=== PATIENT | female | born 1965 | race Caucasian/White ===

== ENCOUNTER 2019-10-06 06:33 | Outpatient (CLI) | payer MEDICAID, SELFPAY ==
--- NOTE | 2019-10-06 07:56 | ECG_ITS ---
NAME OF STUDY: LEXISCAN SESTAMIBI STRESS TEST INDICATION: Chest Pain PROCEDURE: At the baseline, the blood pressure was 134/67 mmHg, oxygen saturation 99% with a heart rate of 44 bpm. The electrocardiogram showed sinus bradycardia, normal axis. Poor anterior R wave progression. The Lexiscan was infused over a period of 20 seconds. A total of 0.4 milligrams of Lexiscan was infused. The stress phase was continued for a total of 5 minutes. Heart rate at the end of the stress phase was 80 bpm, oxygen saturation 98% with a blood pressure 126/75 mmHg. The EKG at the peak infusion revealed sinus rhythm with no significant ST-T wave changes. Sestamibi was injected 20 seconds after the Lexiscan infusion. Blood pressure at the end of the recovery phase was 125/80 mmHg, oxygen saturation 98% with a heart rate of 84 beats per minute. CONCLUSION: 1. No significant EKG changes with the LexiScan infusion. 2. No LexiScan induced chest pain or cardiac arrhythmia. 3. Normal blood pressure and heart rate response. 4. Sestamibi/sestamibi perfusion scan pending; see separate report. Electronically Signed On 10-06-2019 14:53:48 HEAD AND NECK SURGEON by Kayla Cortez M.D. [id number]
--- NOTE | 2019-10-06 07:57 | NMCV_ITS ---
NM MIBI/MIBI Stress/Rest [id number] Shira Becerril Age: 53 Gender: F : 1965 Exam Date: 10/06/2019 08:18 Ordering Phys: Jasmine Valverde MD Technologist: SSI Harmon Exam Location: [facility] Indications: Chest Pain STRESS TEST Please [facility] for [facility] IMAGE PROTOCOL Rest/Stress 1 Lexiscan Day Radiopharmaceutical Dose (mCi) Administration Site Administered by Rest: Tc-99m 10.3 IV SIS Harmon Stress:Tc-99m 32.7 IV SIS Morrell Rest: 10/06/2019 60 Discovery 630 Stress: 10/06/2019 60 Discovery 630 0.4mg Lexiscan. Images obtained in supine and prone position. 46DD chest wall SPECT RESULTS Technical Quality: Good Raw Data Analysis: Normal, Breast attenuation, Soft tissue attenuation Image Corrections: No attenuation or motion correction applied Summed Stress Score: 7 Summed Rest Score: 3 Summed Difference Score: 4 PERFUSION FINDINGS Small size perfusion abnormality of mild severity of anterior wall on rest images with improved tracer uptake on stress images. Small sized perfusion abnormality of mid to apical lateral wall on the rest images with subtle reversibility in mid inferior wall on supine stress images with improved tracer uptake on prone stress images. This is suggestive of attenuation artifact. FUNCTIONAL RESULTS (calculated via Gated SPECT) Stress Image LV EF (%): 66 Stress EDV (mL):96 TID: 0.97 Stress ESV (mL):33 Rest Image LV EF (%): 66 FUNCTIONAL FINDINGS: The left ventricle is normal in size. Transient Ischemia Dilatation of 0.97. There is normal left ventricular systolic function. The left ventricular ejection fraction is normal with a value of 66%. There is normal left ventricular wall thickening. IMPRESSIONS 1. Myocardial perfusion imaging is normal. Attenuation artifact noted on anterior and mid to apical lateral wilson. 2. Overall left ventricular systolic function is normal without regional wall motion abnormalities. 3. The left ventricular ejection fraction is normal with a value of 66%. 4. No coronary ischemia based on the study. Kayla Cortez MD (Electronically Signed) Final Date: 06 October 2019 13:41 S
[2019-10-06 08:00] VITALS: BP 128/75; PULSE 93; BMI 36.2
[2019-10-06] MEDS: regadenoson 0.4 Mg/5 ml Syringe IVP (09:19)
== END 2019-10-06 06:34 | disposition home or self-care (01) ==
LOC: RAD 06:37
PROVIDERS: PCP Nurse Practitioner Family; Visit Provider Specialist
DX: R07.89 Other chest pain (principal)
CPT/HCPCS: 78452; 93017; A9500; J2785

== ENCOUNTER 2020-01-31 09:02 | Outpatient (CLI) | payer MEDICAID, SELFPAY ==
[2020-01-31] MEDS: iohexol 300 mg/mL 50 mL Btl PO (09:25)
--- NOTE | 2020-01-31 11:00 | CT_ITS ---
WS: [id number] CT ABDOMEN PELVIS TECHNIQUE: Contrast-enhanced CT of the abdomen and pelvis with coronal and sagittal reformatted image s. CLINICAL INFORMATION: Abdominal Pain COMPARISON: None. DLP: 1098.[address] scans at [facility] use at least one of these dose optimization techniques: automat ed exposure control; mA and/or kV adjustment per patient size (includes targeted exams where dose is matched to clinical indication); or iterative reconstruction. FINDINGS: Prior postoperative changes hysterectomy. Prior postoperative cholecystectomy and gastric bypass. Pos toperative changes at the GE junction. No evidence of small or large bowel obstruction. No evidence o f gastric outlet obstruction. Normal proximal duodenum. Liver is normal in appearance. Normal portal vein and splenic vein. Normal spleen. Mild fatty atrophy of the pancreas. Mild physiologic common bile duct prominence normal postcholecystectomy. Adrenal gl ands are normal. Bilateral renal cortical atrophy. Normal renal parenchymal enhancement. Small bilate ral renal cysts. Normal caliber abdominal aorta. Lung bases are well aerated. Mild lumbar curve conve x left. Mild sigmoid constipation. CT/CT abdomen pelvis w con* [id number] IMPRESSION: 1. Prior postoperative changes at the GE junction and gastric bypass. No evide nce of gastric outlet obstruction. Proximal duodenum appears normal. 2. Prior cholecystectomy and hysterectomy. 3. Normal-appearing small and large bowel. 4. No evidence of epigastric or ventral abdominal wall hernia. 5. No abdominal or pelvic lymphadenopathy. 6. Small bilateral renal cysts.
[2020-01-31] MEDS: iohexol 300 mg/mL 100 mL Btl IV (11:20)
== END 2020-01-31 09:03 | disposition home or self-care (01) ==
LOC: RADWPI 09:15
PROVIDERS: PCP Nurse Practitioner Family; Visit Provider Surgery
DX: R10.9 Unspecified abdominal pain (principal); Z98.84 Bariatric surgery status; N28.1 Cyst of kidney, acquired; Z90.49 Acquired absence of other specified parts of digestive tract
CPT/HCPCS: 74177; Q9967

== ENCOUNTER → 2020-02-05 09:45 | Outpatient (BNVA) | payer MEDICAID, SELFPAY | PROVIDERS: PCP Nurse Practitioner Family; Visit Provider Specialist | DX: G40.909 Epilepsy, unspecified, not intractable, without status epilepticus (principal) | CPT/HCPCS: 99213 ==

== ENCOUNTER 2021-03-11 14:54 | Outpatient (CLI) | payer MEDICAID, SELFPAY ==
--- NOTE | 2021-03-11 14:59 | MM_ITS ---
WS: [id number] BILATERAL SCREENING DIGITAL MAMMOGRAM WITH CAD HISTORY: SCREENING COMPARISON: 09/20/2019 and 07/26/2018 Bilateral CC and MLO views submitted. Computer aided detection analyzed. Breast composition: There are scattered areas of fibroglandular density. No suspicious masses, microc alcifications or architectural distortion. MM/[place] [id number] IMPRESSION: BI-RADS: 1-Negative FOLLOW UP: 1 Year Follow-up
== END 2021-03-11 14:55 | disposition home or self-care (01) ==
LOC: RADSHAW 14:57
PROVIDERS: PCP Nurse Practitioner Family; Visit Provider Nurse Practitioner Family
DX: Z12.31 Encounter for screening mammogram for malignant neoplasm of breast (principal)
CPT/HCPCS: 77067

== ENCOUNTER → 2021-05-14 09:32 | Outpatient (BNVA) | payer MEDICAID, SELFPAY | PROVIDERS: PCP Nurse Practitioner Family; Visit Provider Specialist | DX: G40.309 Generalized idiopathic epilepsy and epileptic syndromes, not intractable, without status epilepticus (principal); G40.909 Epilepsy, unspecified, not intractable, without status epilepticus; J44.9 Chronic obstructive pulmonary disease, unspecified | CPT/HCPCS: 99213; 99214 ==

== ENCOUNTER 2021-07-12 12:28 | Emergency (ER) | payer MEDICAID, SELFPAY ==
[2021-07-12 12:36] VITALS: BP 148/86; PULSE 77; RESP 20; TEMP 36.7; O2SAT 98
--- NOTE | 2021-07-12 13:33 | ED_ITS ---
HPI - Allergic Reaction General: Chief complaint: Allergic Reaction Stated complaint: UNRESPONSIVE Time Seen by Provider: 07/12/21 12:48 History of Present Illness: HPI narrative: Patient is a 55-year-old female who presents today after taking Xolair around 11 AM. Shortly after taking Xolair the patient used an EpiPen when they became short of breath, hoarse, and nauseous with a headache. The patient exhibits pursed lip breathing and at times struggles to speak. The patient reports being a non-smoker with a history of severe asthma and COPD. The patient reports this is the second time she has ever taken Xolair. complaint: allergic reaction Onset (ago): hour(s) Exposure: medication Associated symptoms: Reports difficulty breathing, dizziness, hoarseness, itching and tongue swelling (Sensation of tongue swelling without physical tongue swelling) Severity: moderate Treatment prior to arrival: epinephrine Review of Systems ENMT: Reports: hoarseness, dry mouth and other (Sensation of swollen tongue) Card: Reports: lightheadedness Resp: Reports: dyspnea, non-productive cough and wheezing Neuro: Reports: dizziness All/Imm: Reports: tongue swelling (Sensation of tongue swelling without physical tongue swelling) PFS ED PFSH: Medical History (Updated 07/12/21 @ 15:17 by Monster Roberts DO) Asthma Carotid artery stenosis Diabetes Family history of heart disease Migraine Morbid obesity ANN-MARIE (obstructive sleep apnea) Seizure Surgical History History of arthroplasty of right ankle History of hysterectomy History of laparoscopic cholecystectomy History of Mitzy-en-Y gastric bypass (~2018) Family History Other Heart disease Denies family history of Anesthesia complication Bleeding disorder Social History Second hand smoke exposure: No Alcohol intake: never Adopted: No Caregiver/support person: Yes Lives independently: Yes Household members: spouse Housing: House Marital status: service: No Current occupational exposures/hazards: No Pets and animals: No History of recent travel: No Sexually active: No Current gender identity: Male and Female Shanell/Mosque: Zoroastrian Special shanell needs: No Agree to transfusion: No Financial difficulty paying for basics: Decline to Answer Physical Exam Const: COMMON NORMALS: no acute distress GENERAL APPEARANCE: cooperative and comfortable ORIENTATION/CONSCIOUSNESS: Yes awake, Yes oriented to person, Yes oriented to place and Yes oriented to time HENMT: COMMON NORMALS: normocephalic, atraumatic, moist oral mucous membranes and oropharynx normal HEAD & SCALP: normocephalic and atraumatic Neck/C-Spine: COMMON NORMALS: no JVD Resp: EFFORT & INSPECTION: Yes pursed lip breathing and Yes Actively coughing AUSCULTATION: wheezes Cardio: COMMON NORMALS: no JVD, regular rate, regular rhythm and No murmurs present (Cardio) RATE: regular rate RHYTHM: regular rhythm Neuro: SENSORIUM/ORIENTATION: Yes oriented to person, Yes oriented to place and Yes oriented to time Course Vital Signs: Vital signs: Vital Signs Temperature 98.1 F 07/12/21 12:36 Pulse Rate 82 07/12/21 15:53 Respiratory Rate 20 H 07/12/21 13:57 Blood Pressure 120/70 07/12/21 15:53 Pulse Oximetry 98 07/12/21 15:53 MDM - Allergic Reaction MDM Narrative: Medical decision making narrative: Doing well at this time breathing is good no stridor no wheezes Goeden discharge home on Medrol Dosepak advised that she stop the Xolair and follow-up with pulmonology Discharge Plan Discharge Patient Disposition: Home Clinical Impression: Severe persistent asthma, Medication adverse effect Condition: Stable Prescriptions: New Medrol (Boubacar) 4 mg tablets,dose pack See Rx Instructions .ROUTE .COMPLEX Qty: 21 RF: 0 Held Xolair 150 mg/mL syringe 300 mg SUBCUT .Monthly RF: 0 Hold Instructions: Resume on 07/25/21. No Action fluticasone propionate 50 mcg/actuation spray,suspension 1 spray INTRANASAL DAILY RF: 0 lisinopril 30 mg tablet 30 mg PO DAILY RF: 0 fluticasone propion-salmeterol [Wixela Inhub] 250-50 mcg/dose blister with device 1 inh INHALATION BID RF: 0 albuterol sulfate [ProAir HFA] 90 mcg/actuation HFA aerosol inhaler 1 inh INHALATION QID RF: 0 montelukast 10 mg tablet 10 mg PO DAILY RF: 0 zonisamide 100 mg capsule See Rx Instructions .ROUTE .COMPLEX Qty: 120 RF: 5 Discharge Orders: Discharge ED (Routine); Ordered 07/12/21 Ordered By: Monster Roberts Referrals: Yaritza Lauren, LATOYA [Primary Care Provider] - Discharge Diet: Usual diet Discharge Activity: Limit activity as instructed Patient Instructions: Opioid Safety Activity Restrictions/Additional Instructions: Follow-up with Dr. Yeung this coming week. Coding Level of Care Code ED Orthophoto Tech/Draftsman for Natali Fwd Exam Detailed
[2021-07-12] MEDS: ipratropium-albuterol 3 mL Neb INHALATION (13:55)
[2021-07-12 13:57] VITALS: PULSE 62; RESP 20; O2SAT 99
[2021-07-12 14:02] VITALS: PULSE 60
[2021-07-12 15:53] VITALS: BP 120/70; PULSE 82; O2SAT 98
== END 2021-07-12 15:55 | disposition home or self-care (01) ==
PROVIDERS: Emergency Provider Family Medicine; PCP Nurse Practitioner Family
DX: J45.50 Severe persistent asthma, uncomplicated (principal); T50.905A Adverse effect of unspecified drugs, medicaments and biological substances, initial encounter; E11.9 Type 2 diabetes mellitus without complications
CPT/HCPCS: 94640; 96374; 99283; J2930

== ENCOUNTER 2021-08-01 09:49 | Outpatient (CLI) | payer MEDICAID, SELFPAY ==
[2021-08-01 10:19] LABS: Basophils % 0.9 %; Eosinophils # 0.1 10^3/uL (0.0-0.8); Eosinophils % 1.1 %; Hematocrit 41.4 % (37.0-47.0); Lymphocytes # 1.5 10^3/uL (0.8-4.8); Lymphocytes % 33.8 %; Mean Corpuscular HGB Conc 31.4 g/dL (30.0-36.0); Mean Corpuscular Hemoglobin 30.9 pg (28.0-34.0); Mean Corpuscular Volume 98.3 fl (81-99); Mean Platelet Volume 10.3 fL (7.4-10.4); Monocytes # 0.4 10^3/uL (0.2-0.9); Monocytes % 7.7 %; Neutrophils # 2.58 10^3/uL (1.8-7.7); Neutrophils % 56.5 %; Nucleated Red Blood Cells % 0 %; Platelet Count 237 10^3/cmm (130-400); Red Blood Count 4.21 10^6/uL (4.1-5.3); Red Cell Distribution Width 13.2 % (12.1-15.1); White Blood Count 4.6 10^3/uL (4.0-10.0)
[2021-08-04 16:02] LABS: Alternaria Alternata (M6) Ige <0.10 kU/L; Alternaria Class 0; Bermuda Class 0; Bermuda Grass (G2) Ige <0.10 kU/L; Cat Dander (E1) Ige <0.10 kU/L; Cat Dander Class 0; Common Ragweed (Short) (W1) Ig <0.10 kU/L; D. Farinae Class 2; Dermatophagoides Class 3; Dermatophagoides Farinae (D2) 0.99 kU/L; Dog Dander (E5) Ige <0.10 kU/L; Dog Dander Class 0; Elm (T8) Ige <0.10 kU/L; Elm Class 0; English Plantain (W9) Ige <0.10 kU/L; English Plantain Class 0; House Dust (Greer) (H1) Ige 0.12 kU/L; House Dust (Hollister- Stier) <0.10 kU/L; House Dust Class 0; House Dust Class 0/1; Immunoglobulin E 248 kU/L (<OR=114); Johnson Grass (G10) Ige <0.10 kU/L; Johnson Grass Cl 0; June Grass Class 0; June Grass(Kentucky Blue) (G8) <0.10 kU/L; Lamb'S Quarters (Goose Foot) <0.10 kU/L; Lamb'S Quarters Class 0; Maple (Box Elder) (T1) Ige <0.10 kU/L; Maple Class 0; Meadow Fescue (G4) Ige <0.10 kU/L; Meadow Fescue Class 0; Mucor Racemosus Class 0; Oak (T7) Ige <0.10 kU/L; Oak Class 0; Orchard Grass (Cocksfoot) (G3) <0.10 kU/L; Penicillium Class 0; Penicillium Notatum (M1) Ige <0.10 kU/L; Perennial Rye Grass (G5) Ige <0.10 kU/L; Perennial Rye Grass Class 0; Ragweeed Class 0; Rough Marsh Elder (W16) Ige <0.10 kU/L; Rough Marsh Elder Class 0; Sweet Vernal Class 0; Sweet Vernal Grass (G1) Ige <0.10 kU/L; Timothy Grass (G6) Ige <0.10 kU/L; Timothy Grass Class 0
[2021-08-05 16:43] LABS: Aspergillus Fumigatus, Igg Ab, 25.4 mg/L (<=102)
== END 2021-08-01 09:50 | disposition home or self-care (01) ==
LOC: LAB 09:53
PROVIDERS: PCP Nurse Practitioner Family; Visit Provider Internal Medicine Critical Care Medicine
DX: J45.50 Severe persistent asthma, uncomplicated (principal); R06.02 Shortness of breath
CPT/HCPCS: 36415; 82785; 85025; 86003

== ENCOUNTER 2021-09-30 10:49 | Outpatient (CLI) | payer MEDICAID, SELFPAY ==
[2021-09-30 11:26] LABS: Basophils % 0.8 %; Eosinophils # 0.1 10^3/uL (0.0-0.8); Eosinophils % 1.9 %; Hematocrit 40.3 % (37.0-47.0); Hemoglobin 12.8 g/dL (11.5-15.3); Lymphocytes # 1.6 10^3/uL (0.8-4.8); Lymphocytes % 30.3 %; Mean Corpuscular HGB Conc 31.8 g/dL (30.0-36.0); Mean Corpuscular Volume 94.4 fl (81-99); Mean Platelet Volume 10.3 fL (7.4-10.4); Monocytes # 0.3 10^3/uL (0.2-0.9); Monocytes % 5.5 %; Neutrophils # 3.21 10^3/uL (1.8-7.7); Neutrophils % 61.3 %; Nucleated Red Blood Cells % 0 %; Platelet Count 250 10^3/cmm (130-400); Red Blood Count 4.27 10^6/uL (4.1-5.3); Red Cell Distribution Width 13.2 % (12.1-15.1); White Blood Count 5.2 10^3/uL (4.0-10.0)
[2021-09-30 11:46] LABS: Calcium 8.4 mg/dL (8.5-10.5)
[2021-09-30 11:57] LABS: Alanine Aminotransferase 13 U/L (0-33); Albumin Level 3.8 g/dL (3.5-5.2); Alkaline Phosphatase 111 IU/L (35-105); Anion Gap 13.6 (5-19); Aspartate Amino Transferase 16 U/L (0-32); Blood Urea Nitrogen 15 mg/dL (6-20); Calcium 8.5 mg/dL (8.5-10.5); Carbon Dioxide 22 mmol/L (22-29); Chloride 108 mmol/L (98-107); Chol HDL Ratio 3.64 mg/dL (0.0-4.40); Cholesterol 193 mg/dL (0-200); Ferritin 82 ng/mL (15-150); Globulin 2.7 g/dL (1.3-4.6); Glomerular Filtration Rate 57.4 mL/min (90-130); Glucose 87 mg/dL (65-115); HDL Cholesterol 53 mg/dL (60-100); Iron 80 ug/dL (37-145); LDL Cholesterol Calculated 108 mg/dL (50-129); LDL HDL Ratio 2.04 RATIO (0.00-3.22); Magnesium 1.9 mg/dL (1.7-2.3); Osmolality Calculated 288 mOsm/kg (285-295); Percent Saturation 29.3 % (20-50); Potassium 4.6 mmol/L (3.5-5.1); Sodium 139 mmol/L (136-145); Thyroid Stimulating Hormone 3.85 uIU/mL (0.27-4.20); Total Bilirubin 0.3 mg/dL (0.15-1.2); Total Iron Binding Capacity 273 mcg/dl; Total Protein 6.5 g/dL (6.6-8.7); Triglycerides 158 mg/dL (0-150); Unsaturated Iron Binding 193 ug/dL (112-347); Vitamin B12 792 pg/mL (232-1245)
[2021-09-30 12:21] LABS: Folate Level > 20.0 ng/mL (4.8-37.3)
[2021-10-03 09:18] LABS: Zinc Level, Serum or Plasma 74 mcg/dL (60-130)
[2021-10-04 10:49] LABS: Vit D 1,25 (Oh)2, Total 50 pg/mL (18-72); Vit D2 1,25 (Oh)2 <8 pg/mL; Vit D3 1,25 (Oh)2 50 pg/mL
[2021-10-05 19:52] LABS: Vitamin B1(Thiamin) Plas/Ser 27 nmol/L (8-30)
== END 2021-09-30 10:50 | disposition home or self-care (01) ==
PROVIDERS: PCP Nurse Practitioner Family; Visit Provider Surgery
DX: Z98.84 Bariatric surgery status (principal)
CPT/HCPCS: 36415; 80053; 80061; 82310; 82607; 82652; 82728; 82746; 83540; 83550; 83735; 83970; 84425; 84443; 84630; 85025

== ENCOUNTER 2022-02-10 09:15 | Outpatient (CLI) | payer MEDICAID, SELFPAY ==
--- NOTE | 2022-02-10 09:35 | XR_ITS ---
WS: [id number] XR forearm LT 2V [id number] REASON FOR EXAM: LEFT ARM PAIN FINDINGS: No fracture or focal bone lesion. No periosteal reaction. No soft tissue abnormality. XR/XR forearm LT 2V [id number] IMPRESSION: Normal left radius and ulna.
--- NOTE | 2022-02-10 09:35 | XR_ITS ---
WS: [id number] XR wrist LT min 3V* [id number] REASON FOR EXAM: LEFT ARM PAIN FINDINGS: No fracture or focal bone lesion. Joint spaces of the left wrist are intact and well preserved. No soft tissue abnormality. XR/XR wrist LT min 3V* [id number] IMPRESSION: No significant abnormality.
== END 2022-02-10 09:16 | disposition home or self-care (01) ==
LOC: RAD 09:18
PROVIDERS: Visit Provider Nurse Practitioner Family
DX: M79.602 Pain in left arm (principal); M25.532 Pain in left wrist
CPT/HCPCS: 73090; 73110

== ENCOUNTER → 2022-02-16 08:48 | Outpatient (BNVA) | payer MEDICAID, SELFPAY | PROVIDERS: Visit Provider Specialist | DX: G40.309 Generalized idiopathic epilepsy and epileptic syndromes, not intractable, without status epilepticus (principal); G43.909 Migraine, unspecified, not intractable, without status migrainosus | CPT/HCPCS: 99213; 99214 ==

== ENCOUNTER 2022-03-19 13:19 | Outpatient (CLI) | payer MEDICAID, SELFPAY ==
--- NOTE | 2022-03-19 13:30 | XR_ITS ---
WS: [id number] Right knee, 3 views, 03/19/2022 Clinical Data: KNEE PAIN, RIGHT Comparison: None. Findings: No fractures or dislocations are seen. There is medial joint compartment narrowing. There are spurs o f the lateral femoral condyle and lateral tibial plateau. The posterior patella shows spurring.The so ft tissues are normal. XR/XR knee RT 3V* [id number] Impression: Mild osteoarthritis of the right knee. Kellgren-Ty Classification: grade 2 (minimal): definite osteophytes and p ossible joint space narrowing
== END 2022-03-19 13:20 | disposition home or self-care (01) ==
LOC: RAD 13:21
PROVIDERS: Visit Provider Nurse Practitioner Family
DX: M17.11 Unilateral primary osteoarthritis, right knee (principal); M25.561 Pain in right knee
CPT/HCPCS: 73562

== ENCOUNTER → 2022-04-29 14:30 | Outpatient (BNVA) | payer MEDICAID, SELFPAY | PROVIDERS: Referring Provider Nurse Practitioner Family; Visit Provider Orthopaedic Surgery | DX: M17.0 Bilateral primary osteoarthritis of knee (principal) | CPT/HCPCS: 73560; 73565; 99203; 99204 ==

== ENCOUNTER → 2022-07-08 13:25 | Outpatient (BNVA) | payer MEDICAID, SELFPAY | PROVIDERS: Visit Provider Orthopaedic Surgery | DX: M17.11 Unilateral primary osteoarthritis, right knee (principal) | CPT/HCPCS: 99213; 99214 ==

== ENCOUNTER 2022-08-13 11:24 | Outpatient (CLI) | payer MEDICAID, SELFPAY ==
--- NOTE | 2022-08-13 11:30 | CT_ITS ---
WS: [id number] CT RIGHT knee, noncontrast HISTORY: Osteoarthritis of right knee TECHNIQUE: Protocol for [facility] total knee replacement has been obtained. This includes axial imaging th rough the same side RIGHT hip, RIGHT knee and RIGHT ankle. DLP: 981.52 mGy.cm COMPARISON: None available. Mild narrowing of the RIGHT hip. No destructive bone lesions. No dislocation. Mild lateral subluxation of the patella. Mild narrowing of the medial lateral compartments. Marginal osteophytes. Mild narrowing of the ankle joint. No fractures or dislocation. CT/CT knee RT [facility] IMPRESSION: CT imaging provided for [facility] robotic total knee replacement.
== END 2022-08-13 11:25 | disposition home or self-care (01) ==
LOC: RAD 11:24
PROVIDERS: PCP Nurse Practitioner Family; Visit Provider Orthopaedic Surgery
DX: M17.11 Unilateral primary osteoarthritis, right knee (principal)
CPT/HCPCS: 73700

== ENCOUNTER 2022-08-24 13:21 | Observation (INO) | payer MEDICAID, SELFPAY ==
[2022-08-13 10:50] VITALS: BMI 43.7
--- NOTE | 2022-08-13 14:58 | ANES.PREANE2 ---
Pre-Anesthetic Assessment Height/Weight: Height 1.6 m Weight 112.037 kg Operation Date: 08/24/22 10:25 Proposed Procedures p RIGHT MAKOPLASTY ROBOTIC TOTAL KNEE REPLACEMENT 44666,M17.11(Right) - Angel John MD Familial anesthetic complications: none Was Beta Pamela taken within 24 hours: Yes Was Clonidine taken within 24 hours: N/A Social No alcohol and No tobacco Exam alert, oriented x 3, clear to auscultation bilaterally and regular rate & rhythm Airway Submandibular: within normal limits Cervical ROM: within normal limits Mallampati: Class II Dentition: chipped Pulmonary Asthma and Chronic Obstructive Pulmonary Disease CV/HEM Hypertension Metabolic Morbid Obesity [facility] Osteoarthritis/DJD Neuropsych Seizure Anesthetic Plan ASA status: 3 Anesthesia: Regional (specify below) (SAB with adductor) Medications/Allergies Home Medications Medication Instructions Recorded Confirmed Last Taken Type fluticasone propionate 50 1 spray intranasal DAILY PRN 11/16/19 08/13/22 Unknown History mcg/actuation nasal allergies spray,suspension lisinopril 30 mg tablet 30 mg PO DAILY 11/16/19 08/13/22 Unknown History metoprolol succinate 25 mg 25 mg PO BEDTIME 10/21/21 08/13/22 Unknown History tablet,extended release 24 hr montelukast 10 mg tablet 10 mg PO DAILY #30 tabs 12/22/21 08/13/22 Unknown Rx tiotropium bromide 18 mcg capsule 1 cap inhalation DAILY #60 06/02/22 08/13/22 Unknown Rx with inhalation device (Spiriva inhalations with HandiHaler) albuterol sulfate 1.25 mg/3 mL 1.25 mg inhalation Q4H PRN Wheezing 08/13/22 08/13/22 Unknown History solution for nebulization albuterol sulfate 90 mcg/actuation 1 inh inhalation QID PRN Wheezing 08/13/22 08/13/22 Unknown History aerosol inhaler (ProAir HFA) aspirin 81 mg chewable tablet 81 mg PO DAILY 08/13/22 08/13/22 Unknown History (Aspirin Childrens) fluticasone 250 mcg-salmeterol 50 1 inh inhalation BID 08/13/22 08/13/22 Unknown History mcg/dose blistr powdr for inhalation (Advair Diskus) zonisamide 100 mg capsule 300 mg PO BEDTIME 08/13/22 08/13/22 Unknown History Allergies Allergy/AdvReac Type Severity Reaction Status Date / Time codeine Allergy Unknown Verified 08/13/22 10:44 divalproex sodium Allergy Unknown Verified 08/13/22 10:44 [From Depakote] imipramine Allergy Unknown Verified 08/13/22 10:44 omalizumab [From Xolair] Allergy ALGY-Difficulty Verified 08/13/22 10:44 Breathing Penicillins Allergy Unknown Verified 08/13/22 10:44 [facility] Anesthesia Medical History Asthma Carotid artery stenosis Diabetes Family history of heart disease Migraine Morbid obesity ANN-MARIE (obstructive sleep apnea) Seizure Surgical History History of arthroplasty of right ankle History of hysterectomy History of laparoscopic cholecystectomy History of Mitzy-en-Y gastric bypass (~2017) Family History Other Heart disease Denies family history of Anesthesia complication Bleeding disorder Social History Smoking and tobacco status: never smoked Second hand smoke exposure: No Alcohol intake: never Adopted: No Caregiver/support person: Yes Lives independently: Yes Household members: spouse Housing: House Marital status: service: No Current occupational exposures/hazards: No Pets and animals: No History of recent travel: No Sexually active: No Current gender identity: Male and Female Shanell/Restorationism: Anabaptism Special shanell needs: No Agree to transfusion: No Financial difficulty paying for basics: Decline to Answer Data Anesthesia Cardiac Studies: Sestamibi Stress Test (Cardiology) 10/06/19
[2022-08-24] VITALS (19 sets, daily range): BP systolic 105–153; BP diastolic 65–102; PULSE 65–96; RESP 14–18; TEMP 36.3–37.2; O2SAT 92–100
[2022-08-24] MEDS: sodium chloride 0.9% 1,000 ML 30 ML IV (09:02)
[2022-08-24] MEDS: acetaminophen 500 mg Tablet 1000 MG PO ×2 (09:02→17:31)
[2022-08-24] MEDS: oxyCODONE 20 mg ER (12 HR) Tablet PO (09:02)
[2022-08-24] MEDS: CELEcoxib 200 mg Capsule 400 MG PO (09:03)
[2022-08-24] MEDS: gabapentin 300 mg Capsule PO ×2 (09:03→17:31)
--- NOTE | 2022-08-24 09:59 | P.HP_ITS ---
Same Day Surgery H&P Indication for Procedure/HPI DATE OF PROCEDURE: August 24, 2022 CHIEF COMPLAINT/INDICATIONFOR SURGICAL PROCEDURE: Arthritis right knee here for right total knee arthroplasty PREOP DIAGNOSIS: Osteoarthritis right knee PLANNED PROCEDURE: Operation Date: 08/24/22 10:25 Proposed Procedures p RIGHT MAKOPLASTY ROBOTIC TOTAL KNEE REPLACEMENT 57783,M17.11(Right) - Angel John MD 56 year female patient here for right total knee arthroplasty. She states that she has had pain for many years. She describes pain in the anterior lateral knees.? Pain is worse in the right? the left she states that her pain is reproduced with prolonged walking and standing.? She states she can walk a block although it is very difficult.? She states that she has pain with ambulating the stairs at her home. She reports that previous cortisone injections actually increased her pain. She states she has used visco supplemental injections, last injection was 4 years ago, which did give her some temporary relief.? Describes feelings of instability predominantly in the right and she describes a number of falls.? He has been managed thus far with topical anti-inflammatories with incomplete help. Medications/Allergies* Home Medications Medication Instructions Recorded Confirmed Type fluticasone propionate 50 1 spray intranasal DAILY PRN 11/16/19 08/13/22 History mcg/actuation nasal allergies spray,suspension lisinopril 30 mg tablet 30 mg PO DAILY 11/16/19 08/24/22 History metoprolol succinate 25 mg 25 mg PO BEDTIME 10/21/21 08/24/22 History tablet,extended release 24 hr albuterol sulfate 1.25 mg/3 mL 1.25 mg inhalation Q4H PRN Wheezing 08/13/22 08/13/22 History solution for nebulization albuterol sulfate 90 mcg/actuation 1 inh inhalation QID PRN Wheezing 08/13/22 08/24/22 History aerosol inhaler (ProAir HFA) aspirin 81 mg chewable tablet 81 mg PO DAILY 08/13/22 08/24/22 History (Aspirin Childrens) fluticasone 250 mcg-salmeterol 50 1 inh inhalation BID 08/13/22 08/24/22 History mcg/dose blistr powdr for inhalation (Advair Diskus) zonisamide 100 mg capsule 300 mg PO BEDTIME 08/13/22 08/24/22 History Allergies/Adverse Reactions Allergy/AdvReac Type Severity Reaction Status Date / Time codeine Allergy Unknown Verified 08/24/22 08:31 divalproex sodium Allergy Unknown Verified 08/24/22 08:31 [From Depakote] imipramine Allergy Unknown Verified 08/24/22 08:31 omalizumab [From Xolair] Allergy ALGY-Difficulty Verified 08/24/22 08:31 Breathing Penicillins Allergy Unknown Verified 08/24/22 08:31 Current Medications: Generic Name Dose Route Start Last Admin Trade Name Freq PRN Reason Stop Dose Admin Sodium Chloride 1,000 mls @ 30 mls/hr 08/24/22 08:30 08/24/22 09:02 Sodium Chloride 0.9% IV 08/25/22 08:29 30 mls/hr .Q24H LYUBOV Administration Pertinent History/Comorbid Conditions* Medical History (Updated 07/08/22 @ 14:17 by Angel John MD) Asthma Carotid artery stenosis Diabetes Family history of heart disease Migraine Morbid obesity ANN-MARIE (obstructive sleep apnea) Seizure Surgical History (Updated 11/17/19 @ 11:29 by Jeffrey Vázquez MD) History of arthroplasty of right ankle History of hysterectomy History of laparoscopic cholecystectomy History of Mitzy-en-Y gastric bypass (~2018) Family History (Updated 11/16/19 @ 13:27 by Rosanna Tovar RN) Heart disease Denies family history of Anesthesia complication Bleeding disorder Social History Smoking and tobacco status: never smoked Second hand smoke exposure: No Alcohol intake: never Adopted: No Caregiver/support person: Yes Lives independently: Yes Household members: spouse Housing: House Marital status: service: No Current occupational exposures/hazards: No Pets and animals: No History of recent travel: No Sexually active: No Current gender identity: Male and Female Shanell/Adventist: [employer] Special shanell needs: No Agree to transfusion: No Financial difficulty paying for basics: Decline to Answer Pertinent Exam Findings alert, oriented x 3, clear to auscultation bilaterally, regular rate & rhythm, operative site marked and procedure specific exam findings KNEE [right] Tender bilateral medial joint RANGE OF MOTION: ? ? ? BILAERAL LIMB ? Extention:? [0] ? Flexion: 120 Severe patellofemoral crepitance in both knees Cruciate collateral ligaments are stable Dorsalis pedis pulses. Flexes and extends toes and ankles without any motor deficits Sensation intact light touch. Recommendations Surgery/Procedure today Coding Level of Care Code Acute Pollution Control Chemist for Natali John
--- NOTE | 2022-08-24 10:02 | P.ANESUD_ITS ---
Pre-Anesthetic Update Pre-Anesthetic Assessment: Date of Surgery/Procedure: 08/24/22 Preop Tessie gnosis: Osteoarthritis right knee Proposed Procedure: Operation Date: 08/24/22 10:25 Proposed Procedures p RIGHT MAKOPLASTY ROBOTIC TOTAL KNEE REPLACEMENT 81381,M17.11(Right) - Angel John MD Any changes to Pre-Anesthetic Assessment?: No Last Intake: Intake Last Liquid Date 08/23/22 Last Liquid Time 22:45 Last Solid Date 08/23/22 Last Solid Time 19:00 Vitals: Temperature 99.0 F 08/24/22 08:38 Temperature Source Temporal Artery S can 08/24/22 08:38 Pulse Rate 65 08/24/22 08:38 Respiratory Rate 17 08/24/22 08:38 Blood Pressure 123/82 08/24/22 08:38 Blood Pressure Lakia n 95 08/24/22 08:38 Pulse Oximetry 98 08/24/22 08:38 Oxygen Delivery Me thod 08/24/22 08:39 Exam: Pre-Anes Outpt Exam: alert, oriented x 3, clear to auscultation bilaterally and regular rate & rhythm Cardiac Studies: Sestamibi Stress Test (Cardiology) 10/06
[2022-08-24] MEDS: ceFAZolin 2,000 MG in sodium chloride 0.9% (plus) 50 ML 100 MG IV ×2 (10:35→17:31)
[2022-08-24] MEDS: EPINEPHrine 1 mg/mL INJ XX (12:02)
[2022-08-24] MEDS: tranexamic acid 1,000 mg/10mL SDV 1000 MG XX (12:02)
[2022-08-24] MEDS: ketorolac 30 mg/mL INJ XX (12:03)
[2022-08-24] MEDS: fentaNYL 50 mcg/mL INJ 2mL IVP ×2 (13:03→16:16)
--- NOTE | 2022-08-24 13:05 | XRR_ITS ---
PROCEDURE INFORMATION: Exam: XR Right Knee Exam date and time: 08/24/2022 1:18 PM Age: 56 years old Clinical indication: Device placement; Joint replacement hardware; Prior surgery; Surgery date: Post-operative (0-2 days); Surgery type: Tka; Additional info: Right total knee arthroplasty TECHNIQUE: Imaging protocol: Radiologic exam of the Right knee. Views: 1 or 2 views. COMPARISON: CT knee RT [facility] 08/13/2022 11:40 AM FINDINGS: Bones/joints: There is a total knee replacement in good alignment. Defects are seen in the frontal view involving the proximal tibia and distal femur presumably from prior fixation. There is joint air and soft tissue injury. The prosthesis is in good alignment. Soft tissues: See Bones/joints finding. XR/XR knee RT 1-2V [id number] IMPRESSION: New knee replacement.
--- NOTE | 2022-08-24 13:05 | PM.OP ---
Operative Report Date of procedure: August 24, 2022 Pre-op diagnosis: Preop Diagnosis Osteoarthritis right knee Post-op diagnosis: same Post-op diagnosis: Same Post-op findings: Same Procedure done: Right total knee arthroplasty Implants: Shanelle Triathalon total knee arthroplasty components were used includin) Size 2 triathalon cruciate retaining femoral component 2) Size 3 Tritanium tibial component 3) Size 3/11 mm thickness CS tibial bearing insert Pathology: none sent Surgeon: Angel John Delinquent Tax Collector Assistant: The nurse practitioner the nurse practitioner assisted with critical portions of the case including positioning, draping, exposure, component implantation, closure and dressing application and is present through the entirety of the case. Anesthesia: Nerve Block (Spinal, adductor canal block) Estimated blood loss (mL): 100 Findings: The patient eburnated bone over the medial femoral condyle, lateral femoral condyle and lateral facet of the patella a Condition: stable Disposition: PACU Procedure: The patient was taken to the operating room. Patient was given 1 g of tranexamic acid and 2 g of Ancef. The above anesthesia provided by the anesthesia service. A timeout was performed. The patient was prepped and draped in the usual fashion with the lower extremity exposed. A anterior incision was made, midline, from a point proximal to the patella to the distal tibial tubercle. The knee was entered through a medial parapatellar approach. The patella could be displaced laterally and the knee flexed. The patellar fat pad was resected to provide better visibility. Retractors were placed medially and laterally adjacent to the tibial plateau. At a point approximately 8 cm above the patella, 2 small incisions were made with a scalpel blade and 2 long threaded pins were placed into the anterior medial femur engaging both cortices. The femoral arrays were placed over these pins and secured. At a point 8 cm distal to the tibial tubercle. 2 shorter bicortical threaded pins were placed across the anterior medial tibia and the tibial arrays placed. A checkpoint was made just proximal and medial to the medial femoral condyle and just medial to the tibial plateau. Small osteotomes were placed in the joint in both flexion and extension to determine ligamentous laxity. The femoral component was shifted anteriorly 1 mm and slightly flexed and the tibial component migrated proximally. This allowed a additional millimeter of tightness in extension compared to flexion to eliminate a preoperative 5 degrees of hyperextension. The TAYLOR robot was then introduced to the field and the femur and tibia cut in accordance with our plan. he [employer] Fastseal was then used to provide hemostasis, particularly about the posterior capsule. A trial with the above components provided excellent stability and full range of motion. The femur was then prepared for the femoral pegs of the component in the tibia for the tibial component. The femur and tibia were then press-fit into place. An osteotome was used to remove the lateral 8 mm of the patella to minimize chances of later impingement. A neurectomy was accomplished circumferentially about the patella with electrocautery and lateral osteophytes removed. Surfaces were cleaned with a gentamicin solution. The femur and tibia were then press-fit into place. The posterior capsule and collateral ligaments were then injected with a solution of 100 mL of 0.2% ropivacaine, 1 mL of a 1:1000 epinephrine solution, 30 mg of Toradol, and 1 g of tranexamic acid. Final polyethylene component was then snapped into place into the tibia. The extensor retinaculum was closed with a running 1 Stratafix interrupted 1 Ethibond. The subcutaneous tissues were closed with 2-0 Vicryl and the skin was closed with a running 4-0 Stratafix. The wound was covered with a Dermabond Prineo dressing. It was covered with 4xrs and a compressive Tubigauze was applied. The patient was taken to recovery room in stable condition.
[2022-08-24] MEDS: oxyCODONE 5 mg IR Tab/Cap PO ×2 (14:34→21:09)
[2022-08-24] MEDS: sodium chloride 0.9% 1,000 ML 100 ML IV ×2 (14:45→23:47)
--- NOTE | 2022-08-24 15:17 | ANE.PACU2 ---
Inpatient post-anesthesia follow up: Airway intact: Yes Vital signs: Temperature 98.1 F Pulse Rate 77 Respiratory Rate 17 Blood Pressure 138/85 Pulse Oximetry 92 Oxygen Delivery Me thod Room Air Oxygen Flow Rate Fraction of Inspir ed Oxygen Hydration adequate: Yes Nausea and vomiting: No Pain level: 2 Mental status: Baseline
[2022-08-24] MEDS: zonisamide 100 MG Capsule 300 MG PO (21:08)
[2022-08-24] MEDS: CELEcoxib 200 mg Capsule PO (21:09)
[2022-08-24] MEDS: metoprolol succinate ER (24 HR) 25 mg Tablet PO (21:09)
[2022-08-25 02:17] LABS: Hemoglobin 10.6 g/dL (11.5-15.3)
[2022-08-25] MEDS: ceFAZolin 2,000 MG in sodium chloride 0.9% (plus) 50 ML 100 MG IV ×2 (03:29→09:50)
[2022-08-25 04:00] VITALS: BP 104/66; PULSE 67; RESP 16; TEMP 36.6; O2SAT 97
[2022-08-25 04:07] VITALS: RESP 18; O2SAT 96
[2022-08-25] MEDS: oxyCODONE 5 mg IR Tab/Cap PO ×2 (04:07→08:03)
[2022-08-25 08:00] VITALS: BP 113/63; PULSE 68; PULSE 79; RESP 16; RESP 17; TEMP 36.5; O2SAT 98
[2022-08-25 08:03] VITALS: RESP 18
[2022-08-25] MEDS: gabapentin 300 mg Capsule PO (08:03)
[2022-08-25] MEDS: CELEcoxib 200 mg Capsule PO (08:03)
[2022-08-25] MEDS: montelukast sodium 10 mg Tablet PO (08:03)
[2022-08-25] MEDS: aspirin 81 mg Chew Tablet PO (08:03)
[2022-08-25] MEDS: acetaminophen 500 mg Tablet 1000 MG PO (08:03)
[2022-08-25] MEDS: lisinopril 10 mg Tablet 30 MG PO (08:03)
--- NOTE | 2022-08-25 08:05 | P.DS_ITS ---
Discharge Providers Date of Admission: 08/24/22 13:21 Date of Discharge: August 25, 2022 Attending Provider at Admission: Angel John MD Attending Provider at Discharge: Angel John MD Primary Care Provider: Yaritza Lauren Diagnoses at Discharge Discharge Diagnosis (1) Status post right knee replacement: Status: Acute (2) Osteoarthritis of right knee: Status: Resolved Reason for Visit Reason for Visit: M17.11 Hospital Course Hospital Course The patient tolerated surgery well. They remained hemodynamically stable. They was begun on aspirin and foot pumps for DVT prophylaxis. The patient was mobili zed with therapy beginning the day of surgery and by the first postoperative day independent with the walker. As the pain was adequately controlled and they were fully mobile they were discharged home. Physical Exam Narrative: On the day of discharge the knee incision was clean. They had no drainage. There is minimal swelling in the thigh and knee and the calf. No distal neurovascular deficits were noted Discharge Data Studies Completed and Pending Completed Studies During Hospitalization Category Date Time Status XR knee RT 1-2V [id number] Routine Exams 08/24/22 13:05 Completed Radiology Impressions Knee X-Ray 08/24/22 13:05 IMPRESSION: New knee replacement. Laboratory Results Hgb 10.6 g/dL (11.5-15.3) L 08/25/22 01:48 Vitals Last Vital Signs Temp 97.7 F 08/25/22 08:00 Pulse 68 08/25/22 08:00 Resp 18 08/25/22 08:03 BP 113/63 08/25/22 08:00 Pulse Ox 98 08/25/22 08:00 O2 Del Method 08/25/22 08:00 Discharge Plan Discharge Patient Disposition: Home Prescriptions: No Action fluticasone propionate 50 mcg/actuation spray,suspension 1 spray INTRANASAL DAILY PRN (Reason: allergies) lisinopril 30 mg tablet 30 mg PO DAILY metoprolol succinate 25 mg tablet extended release 24 hr 25 mg PO BEDTIME montelukast 10 mg tablet 10 mg PO DAILY Qty: 30 3RF Spiriva with HandiHaler 18 mcg capsule, w/inhalation device 1 cap inhalation DAILY Qty: 60 0RF Rx Instructions: NEEDS APPT PRIOR TO FURTHER REFILLS albuterol sulfate 1.25 mg/3 mL solution for nebulization 1.25 mg inhalation Q4H PRN (Reason: Wheezing) zonisamide 100 mg capsule 300 mg PO BEDTIME albuterol sulfate [ProAir HFA] 90 mcg/actuation HFA aerosol inhaler 1 inh INHALATION QID PRN (Reason: Wheezing) fluticasone propion-salmeterol [Advair Diskus] 250-50 mcg/dose Blister With Device 1 inh INHALATION BID aspirin [Aspirin Childrens] 81 mg Tablet,Chewable 81 mg PO DAILY Discharge Orders: Discharge Order (Routine); Ordered 08/25/22 Ordered By: Angel John Other Ambulatory Orders: DME: Walker (Order) Location: None Selected Ordered By: Angel John Referrals: Jose Stern FNP [Physician Cube Cutter] - 09/01/22 1:30 pm Discharge Diet: Advance as tolerated Discharge Activity: Limit activity as instructed Patient Instructions: Opioid Safety Activity Restrictions/Additional Instructions: Okay to shower Keep Tubigauze sleeve in place for swelling. Okay to remove for hygiene. Apply FirstIce up to 20 min/hr for pain and swelling Take Celebrex twice a day for the next 15 days for pain , discontinue other anti-inflammatories Take Neurontin twice a day for 7 days. Take Tylenol 500mg (2 tabs) as needed 3 times a day for mild pain take oxycodone for breakthrough pain. Exercises per physical therapy. May weight-bear as tolerated on total knee arthroplasty IF HAVE ANY PROBLEMS OR QUESTIONS CALL [facility] AT AND ASK TO HAVE DR. ALINE VIRGEN. Discharge Attestations Time Spent in Discharge Care*: other Quality Metrics Clinical Quality Measures [ No reported AMI, CVA or VTE this stay] Coding Level of Care Code Acute [facility] note Diagnoses Status post right knee replacement Z96.651 Osteoarthritis of right knee M17.11
[2022-08-25] MEDS: budesonide 0.5 mg/2 mL Neb INHALATION (08:27)
[2022-08-25] MEDS: albuterol 2.5 mg/3 mL Neb INHALATION (08:27)
[2022-08-25 08:37] VITALS: PULSE 74
--- NOTE | 2022-08-25 11:42 | PC.CHAP ---
Pastoral Care Encounter/Spiritual Assessment Type of Contact [] Declined commander internal affairs visit [] Patient/Family/Request visit [] Outpatient visit [] Follow-up visit [] Physician referral [] Code/Alert [x] Routine visit [] Staff referral [] Actively dying ] Patient sleeping [] Family support [] [] Out of room [] Palliative care [] [] Receiving care in room [] Pre-surgical visit [] Trauma [] Long length of stay [] ICU visit [] Other: Relational/Emotional Strength [x] Patient feels connected with others/family/visitors/staff [] Distress [] Loneliness/isolation [] Abandonment Spirituality of Patient x [] Person of Shanell [] Attends Pentecostalism of their Shanell [x] Believes in Prayer [] Reads Bible or Sabianism materials [] There are Spiritual issues to be addressed [employer] Interventions x [x] Prayer [x] Active listening [x] Non-anxious presence [x] Spiritual/emotional support [] Crisis/trauma care [] Spiritual counseling [] Bereavement support [] Provided bereavement packet [] Provided Bible/devotional materials [] Provided toy/stuffed animal, coloring book to patient or family member [] Provided Communion [] Anointing/[place] [] Salvation [x] Completed spiritual assessment [] Other: Impact on Illness or Injury [] Angry [] Fearful [] Anxious [] Often cries [] Exhaustion [] Unable to work [] Unable to attend restoration [] Unable to walk/stand [] Unable to read [] Unable to drive [] Unable to eat/drink [] Unable to sleep [] Unable to be with family [] Patient intubated [] Other: Summary Time spent with patient 10 miun
[2022-08-25 11:54] VITALS: PULSE 74
--- NOTE | 2022-08-25 14:00 | PC.OT ---
OT Eval not completed secondary to patient discharge before time of evaluation.
== END 2022-08-25 11:54 | disposition home or self-care (01) ==
LOC: MEDSURG 14:52
PROVIDERS: Admitting Provider Orthopaedic Surgery; PCP Nurse Practitioner Family; Visit Provider Orthopaedic Surgery
PROC: 8E0Y0CZ Robotic Assisted Procedure of Lower Extremity, Open Approach (ICD-10-PCS; CPT 27447; principal; 2022-08-24 10:05)
DX: M17.11 Unilateral primary osteoarthritis, right knee (principal); J44.9 Chronic obstructive pulmonary disease, unspecified; I10 Essential (primary) hypertension; E66.01 Morbid (severe) obesity due to excess calories; Z68.41 Body mass index [BMI] 40.0-44.9, adult; J45.909 Unspecified asthma, uncomplicated; I25.10 Atherosclerotic heart disease of native coronary artery without angina pectoris; G47.33 Obstructive sleep apnea (adult) (pediatric)
CPT/HCPCS: 27447; 36415; 73560; 85018; 94640; 97110; 97116; 97161; C1776; G0378; J0171; J0690; J1580; J1885; J2704; J2795; J3010; J7030; J7613; J7626

== ENCOUNTER → 2022-09-21 13:36 | Outpatient (BNVA) | payer MEDICAID, SELFPAY | PROVIDERS: PCP Nurse Practitioner Family; Visit Provider Surgery | DX: Z98.84 Bariatric surgery status (principal) | CPT/HCPCS: 99213 ==

== ENCOUNTER → 2022-09-30 09:37 | Outpatient (BNVA) | payer MEDICAID, SELFPAY | PROVIDERS: PCP Nurse Practitioner Family; Visit Provider Nurse Practitioner Family | DX: Z96.651 Presence of right artificial knee joint (principal) | CPT/HCPCS: 73560; 73565; 99024; 99213 ==

== ENCOUNTER → 2022-10-14 14:16 | Outpatient (BNVA) | payer MEDICAID, SELFPAY | PROVIDERS: PCP Nurse Practitioner Family; Visit Provider Internal Medicine Pulmonary Disease | DX: J45.50 Severe persistent asthma, uncomplicated (principal); E66.01 Morbid (severe) obesity due to excess calories; Z68.41 Body mass index [BMI] 40.0-44.9, adult; R05.3 Chronic cough; Z98.84 Bariatric surgery status | CPT/HCPCS: 99214 ==

== ENCOUNTER → 2022-12-30 08:46 | Outpatient (BNVA) | payer MEDICAID, SELFPAY | PROVIDERS: PCP Nurse Practitioner Family; Visit Provider Nurse Practitioner Family | DX: Z96.651 Presence of right artificial knee joint (principal); Z47.89 Encounter for other orthopedic aftercare | CPT/HCPCS: 73560; 73565; 99213 ==

== ENCOUNTER → 2023-02-16 08:07 | Outpatient (BNVA) | payer MEDICAID, SELFPAY | PROVIDERS: PCP Nurse Practitioner Family; Visit Provider Specialist | DX: G40.309 Generalized idiopathic epilepsy and epileptic syndromes, not intractable, without status epilepticus (principal) | CPT/HCPCS: 99213 ==

== ENCOUNTER → 2023-08-18 09:57 | Outpatient (BNVA) | payer MEDICAID, SELFPAY | PROVIDERS: PCP Nurse Practitioner Family; Visit Provider Nurse Practitioner | DX: Z96.651 Presence of right artificial knee joint (principal); M17.12 Unilateral primary osteoarthritis, left knee | CPT/HCPCS: 73560; 73565; 99214 ==

== ENCOUNTER 2023-11-05 05:54 | Day surgery (SDC) | payer MEDICAID, SELFPAY ==
[2023-11-05 06:10] VITALS: BP 158/126; PULSE 77; RESP 16; TEMP 36.9; O2SAT 99; BMI 45.3
[2023-11-05] MEDS: sodium chloride 0.9% 1,000 ML 30 ML IV (06:24)
--- NOTE | 2023-11-05 07:20 | P.ANESASSM_ITS ---
Pre-Anesthetic Assessment Height/Weight: Height 1.6 m Weight 116.12 kg Temp Pulse Resp BP Pulse Ox O2 Del Method 98.4 F 77 16 158/126 99 Room Air 11/05/23 06:10 11/05/23 06:10 11/05/23 06:10 11/05/23 06:10 11/05/23 06:10 11/05/23 06:10 Preop Diagnosis: screening Operation Date: 11/05/23 07:00 [place] [address]67 colon G0121 screen colon A risk Z12.11(Not Applicable) - Ramirez Bai MD Familial anesthetic complications: none Last intake: Intake Last Liquid Date 11/04/23 Last Liquid Time 21:00 Last Solid Date 11/03/23 Last Solid Time 17:00 Social No alcohol and No tobacco Exam alert, oriented x 3 and clear to auscultation bilaterally Airway Submandibular: within normal limits Cervical ROM: within normal limits Mallampati: Class II Dentition: chipped Pulmonary Asthma CV/HEM Hypertension and Palpitations Murmur per patient None reported Hepatic None reported GI None reported hx gastric surgery Metabolic Morbid Obesity [facility] [place] None reported Neuropsych Seizure (seizure free took medication last night) and 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) Anesthetic Plan ASA status: 3 Anesthesia: General (secondary) and MAC (primary) Medications/Allergies Home Medications Medication Instructions Recorded Confirmed Last Taken Type fluticasone propionate 50 1 spray intranasal DAILY PRN 11/16/19 11/05/23 10/31/23 History mcg/actuation nasal allergies spray,suspension lisinopril 30 mg tablet 30 mg PO DAILY 11/16/19 11/05/23 11/04/23 History metoprolol succinate 25 mg 25 mg PO BEDTIME 10/21/21 11/05/23 08/23/22 19:00 History tablet,extended release 24 hr albuterol sulfate 90 mcg/actuation 1 inh inhalation QID PRN Wheezing 08/13/22 11/05/23 Unknown History aerosol inhaler (ProAir HFA) aspirin 81 mg chewable tablet 81 mg PO DAILY 08/13/22 11/05/23 10/30/23 History (Aspirin Childrens) cane #1 ea 09/01/22 11/05/23 Unknown Rx pediatric multivitamin no.17 2 tab PO DAILY 01/08/2611/05/23 11/04/23 History (Children's Chew Multivitamin tablet) albuterol sulfate 1.25 mg/3 mL 1.25 mg (3 mL) inhalation Q4H PRN 02/09/23 11/05/23 Unknown Rx solution for nebulization Wheezing #90 mL tiotropium bromide 18 mcg capsule 1 cap inhalation DAILY #60 05/03/23 11/05/23 11/04/23 Rx with inhalation device (Spiriva inhalations with HandiHaler) fluticasone 500 mcg-salmeterol 50 1 inh inhalation BID #60 ea 05/31/23 11/05/23 11/04/23 Rx mcg/dose blistr powdr for inhalation (Advair Diskus) zonisamide 100 mg capsule 300 mg PO DAILY 11/03/23 11/05/23 11/04/23 History Allergies Allergy/AdvReac Type Severity Reaction Status Date / Time codeine Allergy Unknown Verified 11/05/23 06:05 divalproex sodium Allergy Unknown Verified 11/05/23 06:05 [From Depakote] imipramine Allergy Unknown Verified 11/05/23 06:05 omalizumab [From Xolair] Allergy ALGY-Difficulty Verified 11/05/23 06:05 Breathing Penicillins Allergy Unknown Verified 11/05/23 06:05 Current Medications Generic Name Dose Route Start Last Admin Trade Name Freq PRN Reason Stop Dose Admin Sodium Chloride 1,000 mls @ 30 mls/hr 11/05/23 06:15 11/05/23 06:24 Sodium Chloride 0.9% IV 11/06/23 06:14 30 mls/hr .Q24H LYUBOV Administration PFSH Anesthesia Medical History Primary osteoarthritis of right knee Primary osteoarthritis of left knee Seizure Diabetes Asthma ANN-MARIE (obstructive sleep apnea) Morbid obesity Migraine Carotid artery stenosis Family history of heart disease Surgical History History of Mitzy-en-Y gastric bypass (~2018) History of hysterectomy History of arthroplasty of right ankle History of laparoscopic cholecystectomy Family History Other Heart disease Denies family history of Anesthesia complication Bleeding disorder Social History Smoking and tobacco/nicotine status: never used tobacco/nicotine Second hand smoke exposure: No Alcohol intake: never Substance/Drug Use: never Adopted: No Caregiver/support person: Yes Lives independently: Yes Household members: spouse Housing: House Marital status: service: No Current occupational exposures/hazards: No Pets and animals: No Sexually active: No Do you think of yourself as: Straight/Heterosexual Current gender identity: Male and Female Shanell/Restoration: Confucianism Special shanell needs: No Agree to transfusion: No Data Anesthesia Cardiac Studies: Sestamibi Stress Test (Cardiology) 10/06
--- NOTE | 2023-11-05 07:21 | W.PM.OPSFHP ---
Same Day Surgery H&P Indication for Procedure/HPI DATE OF PROCEDURE: November 05, 2023 CHIEF COMPLAINT/INDICATIONFOR SURGICAL PROCEDURE: need for screening colonoscopy PREOP DIAGNOSIS: need for screening colonoscopy PLANNED PROCEDURE: Operation Date: 11/05/23 07:00 Proposed Procedures p 00841 colon G0121 screen colon A risk Z12.11(Not Applicable) - Ramirez Bai MD Medications/Allergies* Home Medications Medication Instructions Recorded Confirmed Type fluticasone propionate 50 1 spray intranasal DAILY PRN 11/16/19 11/05/23 History mcg/actuation nasal allergies spray,suspension lisinopril 30 mg tablet 30 mg PO DAILY 11/16/19 11/05/23 History metoprolol succinate 25 mg 25 mg PO BEDTIME 10/21/21 11/05/23 History tablet,extended release 24 hr albuterol sulfate 90 mcg/actuation 1 inh inhalation QID PRN Wheezing 08/13/22 11/05/23 History aerosol inhaler (ProAir HFA) aspirin 81 mg chewable tablet 81 mg PO DAILY 08/13/22 11/05/23 History (Aspirin Childrens) pediatric multivitamin no.17 2 tab PO DAILY 10/14/22 11/05/23 History (Children's Chew Multivitamin tablet) zonisamide 100 mg capsule 300 mg PO DAILY 11/03/23 11/05/23 History Allergies/Adverse Reactions Allergy/AdvReac Type Severity Reaction Status Date / Time codeine Allergy Unknown Verified 11/05/23 06:05 divalproex sodium Allergy Unknown Verified 11/05/23 06:05 [From Depakote] imipramine Allergy Unknown Verified 11/05/23 06:05 omalizumab [From Xolair] Allergy ALGY-Difficulty Verified 11/05/23 06:05 Breathing Penicillins Allergy Unknown Verified 11/05/23 06:05 Current Medications: Generic Name Dose Route Start Last Admin Trade Name Freq PRN Reason Stop Dose Admin Sodium Chloride 1,000 mls @ 30 mls/hr 11/05/23 06:15 11/05/23 06:24 Sodium Chloride 0.9% IV 11/06/23 06:14 30 mls/hr .Q24H LYUBOV Administration Pertinent History/Comorbid Conditions* Medical History (Updated 08/18/23 @ 10:41 by LUIS Rivera) Primary osteoarthritis of right knee Primary osteoarthritis of left knee Seizure Diabetes Asthma ANN-MARIE (obstructive sleep apnea) Morbid obesity Migraine Carotid artery stenosis Family history of heart disease Surgical History (Updated 08/18/23 @ 10:51 by LUIS Rivera) History of Mitzy-en-Y gastric bypass (~2018) History of hysterectomy History of arthroplasty of right ankle History of laparoscopic cholecystectomy Family History (Updated 11/16/19 @ 13:27 by Rosanna Tovar RN) Heart disease Denies family history of Anesthesia complication Bleeding disorder Social History Smoking and tobacco/nicotine status: never used tobacco/nicotine Second hand smoke exposure: No Alcohol intake: never Substance/Drug Use: never Adopted: No Caregiver/support person: Yes Lives independently: Yes Household members: spouse Housing: House Marital status: service: No Current occupational exposures/hazards: No Pets and animals: No Sexually active: No Do you think of yourself as: Straight/Heterosexual Current gender identity: Male and Female Shanell/Nondenominational: [employer] Special shanell needs: No Agree to transfusion: No Pertinent Exam Findings alert, oriented x 3 and clear to auscultation bilaterally Recommendations Surgery/Procedure today Coding Level of Care Code Acute Code for Chg Fwd
[2023-11-05 08:03] VITALS: BP 95/55; PULSE 71; RESP 14; TEMP 36.1; O2SAT 97
[2023-11-05 08:10] VITALS: BP 113/81; PULSE 67; RESP 16; O2SAT 100
[2023-11-05 08:22] VITALS: BP 102/77; PULSE 73; RESP 18; O2SAT 97
== END 2023-11-05 08:41 | disposition home or self-care (01) ==
PROVIDERS: PCP Nurse Practitioner Family; Visit Provider Surgery
PROC: 0DJD8ZZ Inspection of Lower Intestinal Tract, Via Natural or Artificial Opening Endoscopic (ICD-10-PCS; CPT 45378; principal; 2023-11-05 07:00)
DX: Z12.11 Encounter for screening for malignant neoplasm of colon (principal); K57.30 Diverticulosis of large intestine without perforation or abscess without bleeding; D12.8 Benign neoplasm of rectum; Z79.82 Long term (current) use of aspirin; E11.9 Type 2 diabetes mellitus without complications; G47.33 Obstructive sleep apnea (adult) (pediatric); E66.01 Morbid (severe) obesity due to excess calories; Z68.42 Body mass index [BMI] 45.0-49.9, adult; Z82.49 Family history of ischemic heart disease and other diseases of the circulatory system; I10 Essential (primary) hypertension; Z98.84 Bariatric surgery status
CPT/HCPCS: 45380; 88305; J2704; J7030

== ENCOUNTER 2023-11-10 12:51 | Outpatient (CLI) | payer MEDICAID, SELFPAY ==
--- NOTE | 2023-11-10 | MM_ITS ---
WS: [id number] BILATERAL 3D TOMOSYNTHESIS DIGITAL SCREENING MAMMOGRAPHY WITH CAD CLINICAL INFORMATION: SCREENING HISTORY: Screening mammogram. No current complaints. COMPARISON: 2020 TECHNIQUE: Bilateral CC and MLO views. FINDINGS: Scattered fibroglandular densities bilaterally. No suspicious focal mass, asymmetry, calcifications, or architectural distortion. No evidence of malignancy. IMPRESSION: MM/[place] [id number] BI-RADS: 1-Negative FOLLOW UP: 1 Year Follow-up Recommend return to annual screening mammography.
== END 2023-11-10 12:52 | disposition home or self-care (01) ==
LOC: RAD 12:51
PROVIDERS: PCP Nurse Practitioner Family; Visit Provider Family Medicine
DX: Z12.31 Encounter for screening mammogram for malignant neoplasm of breast (principal); R92.323 Mammographic fibroglandular density, bilateral breasts
CPT/HCPCS: 77063; 77067

== ENCOUNTER → 2023-11-24 09:57 | Outpatient (BNVA) | payer MEDICAID, SELFPAY | PROVIDERS: PCP Nurse Practitioner Family; Visit Provider Surgery | DX: Z09 Encounter for follow-up examination after completed treatment for conditions other than malignant neoplasm (principal) | CPT/HCPCS: 99213 ==

== ENCOUNTER 2024-02-08 10:41 | Outpatient (CLI) | payer MEDICAID, SELFPAY ==
[2024-02-08 11:04] LABS: Basophils % 0.5 %; Eosinophils # 0.1 10^3/uL (0.0-0.8); Eosinophils % 1.8 %; Hematocrit 40.2 % (36-47); Lymphocytes # 1.4 10^3/uL (0.8-4.8); Lymphocytes % 25.1 %; Mean Corpuscular HGB Conc 31.8 g/dL (30-55); Mean Corpuscular Hemoglobin 29.8 pg (27-33); Mean Corpuscular Volume 93.5 fl (85-98); Mean Platelet Volume 10.3 fL (7.4-10.4); Monocytes # 0.4 10^3/uL (0.2-0.9); Monocytes % 7.4 %; Neutrophils # 3.59 10^3/uL (1.8-7.7); Nucleated Red Blood Cells % 0 %; Platelet Count 275 10^3/cmm (157-399); Red Cell Distribution Width 13.4 % (12.1-15.1); White Blood Count 5.53 10^3/uL (3.29-11.43)
[2024-02-08 11:21] LABS: Estmated Average Glucose 105; Hemoglobin A1C 5.3 % (4.0-6.0)
[2024-02-08 11:36] LABS: Alanine Aminotransferase 9 U/L (0-33); Albumin Level 3.9 g/dL (3.5-5.2); Alkaline Phosphatase 137 U/L (35-105); Anion Gap 13.3 (5-19); Aspartate Amino Transferase 17 U/L (0-32); Blood Urea Nitrogen 20 mg/dL (6-20); Calcium 8.6 mg/dL (8.5-10.5); Carbon Dioxide 23 mmol/L (22-29); Chloride 110 mmol/L (98-107); Chol HDL Ratio 3.67 mg/dL (0.0-4.40); Cholesterol 169 mg/dL (0-200); Globulin 3.1 g/dL (1.3-4.6); Glomerular Filtration Rate 50.8 mL/min (90-130); Glucose 105 mg/dL (65-115); HDL Cholesterol 46 mg/dL (60-100); LDL Cholesterol Calculated 103 mg/dL (50-129); LDL HDL Ratio 2.24 RATIO (0.00-3.22); Osmolality Calculated 297 mOsm/kg (285-295); Potassium 4.3 mmol/L (3.5-5.1); Sodium 142 mmol/L (136-145); Thyroid Stimulating Hormone 3.85 uIU/mL (0.27-4.20); Total Bilirubin 0.3 mg/dL (0.15-1.2); Triglycerides 101 mg/dL (0-150)
[2024-02-08 11:45] LABS: HIV 1 & 2 Antibody Non-Reactive (Non-Reactiv); HIV 1 & 2 Antigen Non-Reactive (Non-Reactiv)
== END 2024-02-08 10:42 | disposition home or self-care (01) ==
LOC: LAB 10:44
PROVIDERS: PCP Nurse Practitioner Family; Visit Provider Family Medicine
DX: I10 Essential (primary) hypertension (principal); E03.9 Hypothyroidism, unspecified; R73.09 Other abnormal glucose; Z11.4 Encounter for screening for human immunodeficiency virus [HIV]; Z11.59 Encounter for screening for other viral diseases
CPT/HCPCS: 36415; 80053; 80061; 83036; 84443; 85025; 87806

== ENCOUNTER → 2024-02-16 09:27 | Outpatient (BNVA) | payer MEDICAID, SELFPAY | PROVIDERS: PCP Nurse Practitioner Family; Visit Provider Specialist | DX: G40.309 Generalized idiopathic epilepsy and epileptic syndromes, not intractable, without status epilepticus (principal) | CPT/HCPCS: 99213 ==

== ENCOUNTER → 2025-02-14 08:53 | Outpatient (BNVA) | payer MEDICAID, SELFPAY | PROVIDERS: PCP Nurse Practitioner Family; Visit Provider Specialist | DX: G40.309 Generalized idiopathic epilepsy and epileptic syndromes, not intractable, without status epilepticus (principal) | CPT/HCPCS: 99213 ==

== ENCOUNTER 2025-02-21 08:38 | Outpatient (CLI) | payer MEDICAID, SELFPAY ==
--- NOTE | 2025-02-21 11:20 | MM_ITS ---
WS: [id number] BILATERAL SCREENING DIGITAL TOMOSYNTHESIS MAMMOGRAM WITH CAD HISTORY: Z12.39 - Encounter for other screening for malignant neop... COMPARISON: 11/10/2023, 03/11/2021 Bilateral CC and MLO views with tomosynthesis and synthetic mammography submitted. Computer aided detection analyzed. Breast composition: The breasts are almost entirely fatty. No suspicious masses, microcalcifications or architectural distortion. MM/MM scr BI tomosynthesis [id number] IMPRESSION: BI-RADS: 1 - Negative. FOLLOW UP: 1 Year Follow-up
== END 2025-02-21 08:39 | disposition home or self-care (01) ==
PROVIDERS: PCP Nurse Practitioner Family; Visit Provider Specialist
DX: Z12.31 Encounter for screening mammogram for malignant neoplasm of breast (principal); R92.313 Mammographic fatty tissue density, bilateral breasts
CPT/HCPCS: 77063; 77067